=== PATIENT | female | born 1945 | race Two or more races ===

== ENCOUNTER 2018-01-18 11:12 | Outpatient (CLI) | payer OTHER ==
[~2018-01-18 11:12] MED LIST: ATENOLOL25 GM MC; ATENOLOL50 MG; LODINE200 MG; XANAX1 MG PO
== END 2018-01-18 12:35 | disposition home or self-care (01) ==
LOC: RAD 501 11:12
DX: Z96.643 Presence of artificial hip joint, bilateral (principal); M25.561 Pain in right knee; M25.562 Pain in left knee

== ENCOUNTER 2018-07-06 10:39 | Outpatient (CLI) | payer OTHER | END 2018-07-06 12:21 | disposition home or self-care (01) | LOC: RAD 501 10:39 | DX: M25.551 Pain in right hip (principal) ==

== ENCOUNTER 2019-07-03 09:39 | Outpatient (CLI) | payer OTHER | END 2019-07-03 09:45 | disposition home or self-care (01) | LOC: LAB 09:39 | DX: E55.9 Vitamin D deficiency, unspecified (principal); M85.9 Disorder of bone density and structure, unspecified; E21.3 Hyperparathyroidism, unspecified; E88.89 Other specified metabolic disorders; M81.8 Other osteoporosis without current pathological fracture; E56.1 Deficiency of vitamin K ==

== ENCOUNTER → 2019-07-03 | Outpatient (CLI) | payer OTHER | END | disposition home or self-care (01) | LOC: RAD 11:36 | DX: Z96.643 Presence of artificial hip joint, bilateral (principal) ==

== ENCOUNTER 2019-07-09 10:33 | Outpatient (CLI) | payer OTHER | END 2019-07-09 10:54 | disposition home or self-care (01) | LOC: NUCLEAR 10:33 | DX: M81.0 Age-related osteoporosis without current pathological fracture (principal); Z13.820 Encounter for screening for osteoporosis ==

== ENCOUNTER 2019-11-28 12:15 | Outpatient (CLI) | payer OTHER | END 2019-11-28 15:24 | disposition home or self-care (01) | LOC: RAD 12:15 | DX: M25.551 Pain in right hip (principal); M25.561 Pain in right knee ==

== ENCOUNTER 2020-08-05 06:27 | Day surgery (SDC) | payer OTHER ==
[~2020-08-05 06:27] MED LIST changes: +ATACAND32 MG PO; +CARDURA XL4 MG PO; +FOLIC ACID0.8 M1 PO; +TREXALL5 MG PO
== END 2020-08-05 15:50 | disposition home or self-care (01) ==
LOC: CIR.AMB 06:27
PROVIDERS: ATTEND Orthopaedic Surgery
DX: M23.341 Other meniscus derangements, anterior horn of lateral meniscus, right knee (principal); M23.351 Other meniscus derangements, posterior horn of lateral meniscus, right knee; M12.261 Villonodular synovitis (pigmented), right knee; M22.41 Chondromalacia patellae, right knee; Z20.828 Contact with and (suspected) exposure to other viral communicable diseases

== ENCOUNTER → 2021-07-30 09:21 | Outpatient (CLI) | payer OTHER | END | disposition home or self-care (01) | LOC: LAB 09:21 | PROVIDERS: ATTEND Orthopaedic Surgery | DX: M25.552 Pain in left hip (principal); M25.551 Pain in right hip; M85.88 Other specified disorders of bone density and structure, other site; E56.1 Deficiency of vitamin K; E55.9 Vitamin D deficiency, unspecified; E21.2 Other hyperparathyroidism; E88.89 Other specified metabolic disorders; M81.8 Other osteoporosis without current pathological fracture; Z96.643 Presence of artificial hip joint, bilateral ==

== ENCOUNTER 2021-08-06 11:38 | Outpatient (CLI) | payer OTHER | END 2021-08-06 11:49 | disposition home or self-care (01) | LOC: RAD 11:38 | PROVIDERS: ATTEND Orthopaedic Surgery | DX: M25.561 Pain in right knee (principal) ==

== ENCOUNTER 2021-08-14 16:11 | Outpatient (CLI) | payer OTHER | END 2021-08-14 16:21 | disposition home or self-care (01) | LOC: RAD 16:11 | PROVIDERS: ATTEND Orthopaedic Surgery | DX: M17.11 Unilateral primary osteoarthritis, right knee (principal) ==

== ENCOUNTER 2021-10-07 15:47 | Emergency (ER) | payer OTHER ==
[~2021-10-07] VITALS: Ht 154.9 cm; Wt 56.7 kg
== END 2021-10-07 20:33 | disposition home or self-care (01) ==
LOC: ER 15:47
DX: T84.021A Dislocation of internal left hip prosthesis, initial encounter (principal); M25.552 Pain in left hip; Z96.652 Presence of left artificial knee joint; X50.9XXA Other and unspecified overexertion or strenuous movements or postures, initial encounter; Y93.89 Activity, other specified; Y92.098 Other place in other non-institutional residence as the place of occurrence of the external cause; Y99.8 Other external cause status

== ENCOUNTER 2021-11-25 10:06 | Outpatient (CLI) | payer OTHER | END 2021-11-25 10:07 | disposition home or self-care (01) | LOC: SONOGRAMA 10:06 | PROVIDERS: ATTEND Orthopaedic Surgery | DX: M25.551 Pain in right hip (principal) ==

== ENCOUNTER 2022-03-02 21:21 | Emergency (ER) | payer OTHER ==
[~2022-03-02] VITALS: Ht 154.9 cm; Wt 59.0 kg
[2022-03-02] MEDS ORDERED: INDERAL LA80 MG (21:38)
== END 2022-03-03 09:50 | disposition home or self-care (01) ==
LOC: ER 21:21
DX: T84.021A Dislocation of internal left hip prosthesis, initial encounter (principal); Z20.822 Contact with and (suspected) exposure to COVID-19

== ENCOUNTER 2022-06-17 13:38 | Outpatient (CLI) | payer OTHER ==
[~2022-06-17 13:38] MED LIST changes: +INDERAL LA80 MG
== END 2022-06-17 13:45 | disposition home or self-care (01) ==
LOC: LAB 13:38
PROVIDERS: ATTEND Orthopaedic Surgery
DX: N19 Unspecified kidney failure (principal)

== ENCOUNTER 2022-06-21 13:24 | Outpatient (CLI) | payer OTHER | END 2022-06-21 13:28 | disposition home or self-care (01) | LOC: RAD 13:24 | PROVIDERS: ATTEND Orthopaedic Surgery | DX: M25.562 Pain in left knee (principal) ==

== ENCOUNTER 2022-07-23 12:45 | Outpatient (CLI) | payer OTHER | END 2022-07-23 12:53 | disposition home or self-care (01) | LOC: LAB 12:45 | PROVIDERS: ATTEND Orthopaedic Surgery | DX: A49.02 Methicillin resistant Staphylococcus aureus infection, unspecified site (principal) ==

== ENCOUNTER 2025-05-02 12:15 | Outpatient (CLI) | payer OTHER | END 2025-05-02 12:23 | disposition home or self-care (01) | LOC: RAD 12:15 | PROVIDERS: ATTEND Orthopaedic Surgery | DX: M25.561 Pain in right knee (principal); M25.562 Pain in left knee ==

== ENCOUNTER 2025-05-21 08:57 | Outpatient (CLI) | payer OTHER ==
[2025-05-21 09:34] LABS: BASO % 0.5 % (0.1-1.2); EOS # 0.04 (0.04-0.54); EOS % 0.7 % (0.7-7.0); LYMPH # 1.77 (1.18-3.74); LYMPH % 31.3 % (19.3-53.1); MEAN PLATELET VOLUME 11.10 fl (9.4-12.4); MONO # 0.47 (0.24-0.82); MONO % 8.3 % (4.7-12.5); NEUT # 3.33 (1.56-6.13); NEUT % 59.0 % (34.0-71.1); RED CELL DISTRIBUTION WIDTH 14.2 % (11.6-14.4)
[2025-05-21 10:09] LABS: ALT/SGPT 45.0 U/L (12-78); AST/SGOT 27.0 U/L (15-37); BILIRUBIN TOTAL 0.47 mg/dL (0.3-1.2); BUN CREA RATIO 26.0 (7.0-25.0); CREATININE SERUM 0.68 mg/dL (0.55-1.02); GFR 83.68; GLOBULINA 3.1 G/DL (2.4-3.5); GLUCOSE FASTING 91.0 mg/dL (65-100); OSMOLALITY SERUM 286.0 MOSM/KG (275-295)
[2025-05-21 10:15] LABS: URINE APPEARANCE Clear; URINE BACTERIA 9.5 uL (0.0-1933); URINE BILIRRUBIN Negative (NEGATIVE); URINE BLOOD Negative; URINE COLOR Yellow; URINE EPITHELIAL CELLS 13.1 uL (0.0-38.8); URINE GLUCOSE Negative (NEGATIVE); URINE KETONE Negative (NEGATIVE); URINE LEUKOCYTE Negative; URINE NITRATE Negative; URINE PROTEIN Negative (NEGATIVE); URINE RBC 2.1 uL (0.0-20.8); URINE UROBILINOGEN 0.2 E.U./dl; URINE WBC 5.5 uL (0.0-23.2)
[2025-05-21 10:25] LABS: INR 0.99
[2025-05-21 10:38] LABS: URINE CAST 0.87 uL (0.0-1.40)
[2025-05-21 10:48] LABS: COL EPI 93 SECONDS (82-175)
== END 2025-05-21 09:05 | disposition home or self-care (01) ==
LOC: LAB 08:57 → RAD 08:57
PROVIDERS: ATTEND Orthopaedic Surgery
DX: D64.9 Anemia, unspecified (principal); E88.9 Metabolic disorder, unspecified; D68.8 Other specified coagulation defects; N39.0 Urinary tract infection, site not specified; Z22.322 Carrier or suspected carrier of Methicillin resistant Staphylococcus aureus; E11.9 Type 2 diabetes mellitus without complications; Z76.89 Persons encountering health services in other specified circumstances; I10 Essential (primary) hypertension

== ENCOUNTER 2025-06-14 08:17 | Inpatient (IN) | payer OTHER ==
[~2025-06-14] VITALS: Ht 154.9 cm; Wt 60.3 kg
[~2025-06-14 08:17] MED LIST changes: -INDERAL LA80 MG; +INDERAL LA80 MG PO
[2025-06-14] MEDS ORDERED: DYRENIUM50 MG PO (08:20)
[2025-06-14] MEDS ORDERED: METHOTREXATE2.5 MG PO (08:20)
[2025-06-17] MEDS ORDERED: CELECOXIB200 MG (09:45)
[2025-06-17] MEDS ORDERED: FLONASE16 GM (09:45)
[2025-06-17] MEDS ORDERED: SUCRALFATE1 GM (09:46)
[2025-06-17] MEDS ORDERED: PRAVASTATIN SOD10 MG (09:46)
[2025-06-17] MEDS ORDERED: AZELASTINE137 MCG/0. (09:46)
[2025-06-17] MEDS ORDERED: TRIAMTERENE-HC1 EAC1 (09:46)
[2025-06-17] MEDS ORDERED: HIBICLENS118 ML (09:46)
[2025-06-17] MEDS ORDERED: VANCOMYCIN HCL 1,000 MG VIAL IV ONE (12:00)
[2025-06-17] MEDS ORDERED: VANCOMYCIN HCL 1,000 MG VIAL IR ONE (12:00)
[2025-06-17] MEDS ORDERED: CEFTRIAXONE SODIUM 2,000 MG VIAL IV ONE (12:00)
[2025-06-17] MEDS ORDERED: TRANEXAMIC ACID 100MG/1ML (1000MG) AMPUL IV ONE ×2 (12:00)
[2025-06-17] MEDS ORDERED: KETOROLAC TROMETHAMINE 60 MG VIAL IM ONE (12:00)
[2025-06-17] MEDS ORDERED: ONDANSETRON 4 MG TAB.RAPDIS PO PRN (14:30)
[2025-06-17] MEDS ORDERED: ONDANSETRON HCL 2 MG/ML VIAL IV PRN (14:30)
[2025-06-17] MEDS ORDERED: SODIUM CHLORIDE 0.45 % 1,000 ML IV SCH (14:30)
[2025-06-17] MEDS ORDERED: ACETAMINOPHEN 325 MG TABLET PO SCH (17:00)
[2025-06-17 18:50] VITALS: BP 151/78; O2SAT 96
[2025-06-18 02:42] VITALS: BP 128/62; O2SAT 95
[2025-06-18] MEDS ORDERED: RIVAROXABAN 10 MG TAB PO SCH (09:00)
[2025-06-18] MEDS ORDERED: PANTOPRAZOLE SODIUM 40 MG TABLET.DR PO SCH (09:00)
[2025-06-18] MEDS ORDERED: CEFTRIAXONE SODIUM 1,000 MG VIAL IV SCH (09:00)
[2025-06-18 17:16] VITALS: BP 162/75; O2SAT 95
[2025-06-18 21:51] LABS: BASO % 0.2 % (0.1-1.2); EOS # 0.01 (0.04-0.54); EOS % 0.1 % (0.7-7.0); LYMPH # 0.96 (1.18-3.74); LYMPH % 11.7 % (19.3-53.1); MEAN PLATELET VOLUME 9.90 fl (9.4-12.4); MONO # 1.01 (0.24-0.82); NEUT # 6.23 (1.56-6.13); NEUT % 75.6 % (34.0-71.1); RED CELL DISTRIBUTION WIDTH 14.4 % (11.6-14.4)
[2025-06-18 21:53] LABS: MONO % 12.3 % (4.7-12.5)
[2025-06-18] MEDS ORDERED: ENALAPRILAT DIHYDRATE 1.25 MG/ML VIAL IV PRN (22:00)
[2025-06-18 23:00] VITALS: BP 135/76; O2SAT 96
[2025-06-19 07:15] LABS: BASO % 0.1 % (0.1-1.2); EOS # 0.01 (0.04-0.54); EOS % 0.1 % (0.7-7.0); LYMPH # 1.20 (1.18-3.74); LYMPH % 15.7 % (19.3-53.1); MEAN PLATELET VOLUME 11.10 fl (9.4-12.4); MONO # 0.91 (0.24-0.82); MONO % 11.9 % (4.7-12.5); NEUT # 5.49 (1.56-6.13); NEUT % 71.9 % (34.0-71.1); RED CELL DISTRIBUTION WIDTH 14.5 % (11.6-14.4)
[2025-06-19] MEDS ORDERED: SENNA/DOCUSATE SODIUM 1 TAB TABLET PO SCH (09:00)
[2025-06-19] MEDS ORDERED: CANDESARTAN CILEXETIL 16 MG TABLET PO SCH (09:00)
[2025-06-19 09:30] VITALS: BP 153/86; O2SAT 97
[2025-06-19 18:21] VITALS: BP 109/69; O2SAT 97
== END 2025-06-19 18:58 | disposition home or self-care (01) | DRG 470 ==
LOC: O/R 06-17 08:17 → SURG 06-17 08:17 → EDSTATUS 06-17 08:25 → SURH 06-17 10:45 → SURG 06-17 15:49 → CIR.AMB 06-17 16:01 → SURG 06-19 18:58
PROVIDERS: ADMIT Orthopaedic Surgery; ATTEND Orthopaedic Surgery
PROC: 0MNN0ZZ Release Right Knee Bursa and Ligament, Open Approach (ICD-10-PCS; 2025-06-17)
PROC: 0SRC0JZ Replacement of Right Knee Joint with Synthetic Substitute, Open Approach (ICD-10-PCS; principal; 2025-06-17 10:45)
DX: M17.11 Unilateral primary osteoarthritis, right knee (principal)

== ENCOUNTER 2025-06-25 09:35 | Outpatient (CLI) | payer OTHER ==
[~2025-06-25 09:35] MED LIST changes: +AZELASTINE137 MCG/0.; +CELECOXIB200 MG; +DYRENIUM50 MG PO; +FLONASE16 GM; +HIBICLENS118 ML; +METHOTREXATE2.5 MG PO; +PRAVASTATIN SOD10 MG; +SUCRALFATE1 GM; +TRIAMTERENE-HC1 EAC1
[2025-06-25 10:33] LABS: BASO % 0.5 % (0.1-1.2); EOS # 0.11 (0.04-0.54); EOS % 1.7 % (0.7-7.0); LYMPH # 1.82 (1.18-3.74); LYMPH % 27.8 % (19.3-53.1); MEAN PLATELET VOLUME 10.50 fl (9.4-12.4); MONO # 0.57 (0.24-0.82); MONO % 8.7 % (4.7-12.5); NEUT # 3.98 (1.56-6.13); NEUT % 60.8 % (34.0-71.1); RED CELL DISTRIBUTION WIDTH 14.3 % (11.6-14.4)
== END 2025-06-25 09:36 | disposition home or self-care (01) ==
LOC: LAB 09:35
PROVIDERS: ATTEND Orthopaedic Surgery
DX: D64.9 Anemia, unspecified (principal)

== ENCOUNTER 2025-08-01 10:46 | Outpatient (CLI) | payer OTHER | END 2025-08-01 10:52 | disposition home or self-care (01) | LOC: RAD 10:46 | PROVIDERS: ATTEND Orthopaedic Surgery | DX: M25.551 Pain in right hip (principal); M25.552 Pain in left hip ==